=== PATIENT | male | born 1935 | race Caucasian/White ===

== ENCOUNTER 2025-10-05 09:36 | Emergency (ER) | payer MEDICARE, SELFPAY ==
--- OUTSIDE RECORDS SUMMARY | 2025-09-30 10:00 | XMS_ITS | Continuity of Care Document ---
Author Organization [facility] Address [address] [place] [address] Phone Care Team Providers Care Truckload Owner Operator Name Role Phone Sal Negro MD Primary Care Provider [phone] Gael Jackson MD Other Provider Randolph Mohamud MD Attending Provider Ankur Murillo DO Emergency Provider NON STAFF Primary Care Provider Parker Lopez MD Admit Provider Marcel Parker MD Other Provider Ilia Man MD Other Provider Indira Farris MD Attending Provider [phone] Indira Farris MD Other Provider Care Teams Patient Care Team Team Status: Active Member Role/Relationship Status Dates NON STAFF Primary Care Provider Active Visit Care Team Team Status: Active Member Role/Relationship Status Dates Sal Negro MD Primary Care Provider Active Start: August 25, 2025 Gael Jackson MDOther ProviderActiveStart: August 25, 2025 Randolph Mohamud MDAttmary ProviderActiveStart: August 25, 2025 Visit Care Team Team Status: Active Member Role/Relationship Status Dates Ankur Murillo DO Emergency Provider Active Start: September 19, 2025 NON STAFFPrimary Care ProviderActiveStart: September 19, 2025 Francisco Mayorga ProviderActiveStart: September 19, 2025 Rene Peacock ProviderActiveStart: September 19, 2025 Rene Avina ProviderActiveStart: September 19, 2025 Donna Fall ProviderActiveStart: September 19, 2025 Rene Fall ProviderActiveStart: September 19, 2025 Patient Care Team Team Status: Inactive Member Role/Relationship Status Dates NON STAFF Primary Care Provider Active Start: September 30, 2025 End: September 30, 2025Donna Fall ProviderActiveStart: September 30, 2025 End: September 30, 2025 Chief Complaint and Reason for Visit Chief Complaint Admit Date 3rd Degree AV Block August 25, 2025 1 :02pm Shortness of Breath September 19, 2025 9:55am hospital f/u September 30, 2025 2 :24pm Reason for Visit Admit Date (HFpEF) heart failure with preserved eje ction fraction September 19, 2025 9:55am Acute renal failure September 19, 2025 9:55am Acute urinary retention September 19, 9:55am CHAPINCITO (acute kidney injury) September 19, 2025 9:55am CHF (congestive heart failure) September 19, 2025 9:55am Hypertension September 19, 2025 9:55am Hypokalemia September 19, 2025 9:55am (HFpEF) heart failure with preserved eje ction fraction September 30, 2025 2:24pm Acute renal failure September 30, 2025 2 :24pm Acute urinary retention September 30 2:24pm Hypertension September 30, 2025 2 :24pm Proteinuria September 30, 2025 2 :24pm Reason for Referral Type Reason(s) Provider Provider Contact Information Rich harmon Address Start Date You have been scheduled for a follow up appointment for the following date and time, please call to reschedule if needed.[facility] Phone: [phone] [facility] [address]RyqcvcNikki Damon MD FACCEmail: [email or web address] Phone: [phone] [address] [facility] [address]Wdh office is currently closed. Please call the office for a follow-up appointment.Indira Farris MDEmail: [email or web address] Phone: [phone] [address] [facility] [address]Qfi have been scheduled for a follow up appointment for the following date and time, please call to reschedule if needed. You will be seeing Lulu Lozada NP on this date.Xenia Mckinney Phone: [phone] [address] [facility] [address] Allergies, Adverse Reactions, Alerts Allergen Type Severity Reaction Last Updated Verified Status No Known Allergies Allergy Unknown September 30, 2025 2:27pmYesActive Social History Smoking Status Status Start Date End Date Date of Observa tion Ex-smoker (finding) September 30, 2025 2:31pm Observation Status Observation Response Date of Response Legal Sex Male (finding) Sex Assigned At BirthMaleSept1934 Social History Assessments Assessment Value Date Recorded SDOH Follow up September 24, 2025 12:09pmQuestionAnswerDate RecordedHas the SDOH screening changed since admission?NNovember 2024 12:09pm Family History Relationship Condition Age at Onset Recorded Date/T marietta Not Specified No pertinent family history Unknown Problems Active Problems Problem Diagnosis/Recorded Date Onset Date Status C omments CHAPINCITO (acute kidney injury) September 19, 2025 9:44am Unkno wn Active (HFpEF) heart failure with preserved ejection fractionNov2024 3:28pm UnknownActiveAcute renal failureNov2024 2:42pmUnknownActiveCHF (congestive heart failure)September 19, 2025 9:44amUnknownActiveProteinuria September 30, 2025 2:37pmUnknownActiveAcute urinary retentionNov2024 4:23pmUnknownActiveHypertensionJune 2021 9:00amUnknownActiveProblem List clean-up per request of Phys. EHR [facility]2024 3:53pm UnknownActive Medications Medication Status Dose Units Route Directions Qty Days Refills S tart Date Stop Date End Date Reason(s) Instructions Adherence Amlodipine 10 mg Tablet Discontinued 10 MG PO Dori ly at bedtime April 10, 2022 11:00pmSeptember 19, 2025 8:25amhtnAtorvastatin 40 mg Tablet Xxfgfn16DIEQHufeq at bedtimeOur [facility]2021 11:00pmComplies with drug therapy Carvedilol 12.5 mg QkdkibOjhejt83.5MGPOTwice dailyJun2021 11:00pm Complies with drug therapyLisinopril-Hydrochlorothiazide 20-12.5 mg TabletActive 1TABPOEvery morningJun2021 11:00pmhtnOn Hold: Resume on 10/01/25.Unknown Lisinopril-Hydrochlorothiazide 10-12.5 mg OtjvstWwabsdjrqyhg0JXWSEMryoaBodg 14th, 2022 11:00pmJune 2021 10:92alsysRy-Yzf-Jcbfs-Z7-Ttjixhz-Zzgzxh (Centrum Silver Men) 300-600-300 mcg CaknqvSfyivm0ZQCNCIwtrcUhha 2021 11:00pmComplies with drug therapyAspirin 81 mg Tablet,CiihsfmlMqbhuzalgwps24KLHO DailyJun2021 11:00pm[facility] 8:24amClindamycin Hcl 300 mg aqlzlndKabymdgivpuq358XDKSXaqcz times iydts247Ohwv 29th, 2022 11:00pm[facility]20[facility] 8:24amVit C-Vit L-Kt-Ev-Lutein-Zeax 250 mg-200 unit -12.5 mg-1 mg jrskrcFahrlb9DIKFFRobzqZpvrraqd 23rd, 2025 12:00amComplies with drug therapy Cefdinir 300 mg tukftbhSfxgesdmurzw910CYIUEqexx yzsgt111Czrygufs2024 12:00amDecebanner [facility] 2024 2:29pmTamsulosin (Flomax) 0.4 mg capsuleActive0.4MGPO Ofjvf296PfzmxwgfSeptember 24, 2025 12:00amComplies with drug therapyDocusate Sodium (Colace) 100 mg fgnqmczFhoujnepagrh718OGTCUirvt as needed for gyhywbnanucz141 September 24, 2025 1:34pmDecemb2024 2:29pm Immunizations Immunization Event Date Not Given Reason Dose Number Clipper Counters Lot Number Reason(s) Given Vaccine Information Statement (VIS) Detail Administration Location COVID-19 mRNA-1273 (Moderna) November 14, 2020 COVID-19 mRNA-1273 (Moderna)December 15OVID-19 mRNA-1273 (Moderna) September 01, 2021 Medical Equipment Device Date Implanted Device Details Dual-chamber implantable pac emaker, rate-responsive April 26, 2022 DANIEL: [id number] Issuing Agency: [facility] Device Id: [id number] Serial Number: [id number] Vital Signs Vital Reading Result Reference Range Collection Date/Time Height 65 [in_i] September 20, 2025 2:99nrQmegrr63.00 kgSeptember 24, 2025 5:31amBody Xaxrrxjftwy76.8 [degF]97.6-99.0September 24, 2025 7:41pmHeart Rate80 /jjx10-390 September 24, 2025 7:41pmRespiratory rate18 /prr33-08SdiythboSeptember 24, 2025 7:41pm Oxygen saturation by Pulse kihqpskt58 %95-100September 24, 2025 7:41pmBP Piomhmfo061 mm[Hg]100-140September 24, 2025 7:41pmBP Awjikafya96 mm[Hg]60-100 September 24, 2025 7:03bbInspzk17 [in_i]September 30, 2025 2:39epHrzrex52.21 kg September 30, 2025 2:25pmHeart Rate77 /oub55-911Axkzfigf 4th, 2025 2:25pm Respiratory rate16 /vhg24-16Yvoypryi 4th, 2025 2:25pmOxygen saturation by Pulse hbibboii70 %95-100Decemb2024 2:25pmBP Mjrfcdqz402 mm[Hg]100-140Decemb2024 2:25pmBP Dgpjstoey16 mm[Hg]60-100Dece2024 2:25pmBMI (Body Mass Index)26.1 kg/o1StbbivusSeptember 30, 2025 2:25pm Advance Directives Advance Directive Response Recorded Date/ Time Advance Directives No August 06, 2017 3:39pm Insurance Providers Guarantor Brian Schaeffer [employer] Address [address] [address]Ysgltgs Info.Home Phone: Payer Group Member ID Coverage Type Subscriber Relationship to Subscriber Effective Date Expiration Date Medicare [id number] T [employer] Id: [id number] [address] [address] Home Phone: Email: decline [employer] Insurance [employer] [id number] T Ruffing Id: [id number] [address] [address] Home Phone: Email: decline [employer] Encounters Encounter Location(s) Arrival/Admit Date Discharge/Departure Date Discharge/Departure Disposition Provider(s) Non-patient / [facility]visit -[facility] July 292024 1:02pm Annabel MohamudNon-patient / [facility]fe[facility] September 19, 2025 9:55amELUL Kiddeparted Physician/Provider Office Visit-[facility]pmD[facility] 2:57pmDischarged to home care or self care (routine discharge)Indira Farris MD Recent Diagnosis Onset Date Admit Date (HFpEF) heart failure with p reserved ejection fraction Unknown September 19, 2025 9:55am Acute renal failure Unknown August 9:55am Acute urinary retention Unknown September 19, 2025 9:55am CHAPINCITO (acute kidney injury) Unknown Novemb er 2024 9:55am CHF (congestive heart failure) Unknown N ovember 2024 9:55am Hypertension Unknown September 19 025 9:55am Hypokalemia Unknown September 19 025 9:55am (HFpEF) heart failure with p reserved ejection fraction Unknown September 30, 2025 2:24pm Acute renal failure Unknown September 2:24pm Acute urinary retention Unknown September 30, 2025 2:24pm Hypertension Unknown September 30 2:24pm Proteinuria Unknown September 30 2:24pm Assessments Diagnosis Onset Date Resolution Status Admit Date (HFpEF) heart failure with preserved eje ction fraction acuteSeptember 19, 2025 9:55amAcute renal failureacuteSeptember 19, 2025 9:55amAcute urinary retentionacuteSeptember 19, 2025 9:55amAKI (acute kidney injury)acuteSeptember 19, 2025 9:55amCHF (congestive heart failure)acute September 19, 2025 9:55amHypertensionacuteSeptember 19, 2025 9:55amHypokalemia acuteSeptember 19, 2025 9:55am(HFpEF) heart failure with preserved ejection fractionacuteDecemb2024 2:24pmAcute renal failureacuteDece2024 2:24pmAcute urinary retentionacutece2024 2:24pmHypertensionacute September 30, 2025 2:24pmProteinuriaacuteDece2024 2:24pm Plan of Treatment Future Tests Future scheduled test information is unavailable Pending Tests Test Name Ordered Date Scheduled Date Renal Function Panel September 30, 2025 2:50pm 2 Weeks Future Visits Future appointment information is unavailable Future Procedures Procedure Name Ordered Date Scheduled Date Basic Metabolic Panel September 24, 2025 1:33pm 1 Weeks Admit Status Order September 19, 2025 9:55am No vember 2024 9:55am Discharge Order September 24, 2025 12:24pm Albert guido 2024 12:24pm Consult to Nephrology September 22, 2025 9:44am September 22, 2025 9:44am Consult to Urology September 21, 2025 8:03pm No vember 2024 8:03pm Hemogram CBC Without Diff September 30, 2025 2:5 0pm 2 Weeks Phosphorus September 30, 2025 2:50pm 2 Week s Parathyroid Hormone Intact September 30, 2025 2: 50pm 2 Weeks Creatinine, Urine (Random) September 30, 2025 2: 50pm 2 Weeks Total Protein, Urine September 30, 2025 2:53pm 2 Weeks Future Medications Future medication information is unavailable Patient Instructions Instruction Admit Date Cefdinir Tamsulosin Know your MedsNovember 2024 9:55am Goals Acute Goals Author Authored Date need f/u with Urology and nephrology in 1-2 weeks [facility]ir [facility] 12[facility]27[facility]
[2025-10-05 09:49] VITALS: BP 118/63; PULSE 92; TEMP 36.6; O2SAT 100; BMI 27.0
--- NOTE | 2025-10-05 11:13 | ED_ITS ---
HPI - Male Genitourinary General Chief complaint: Urogenital-Male Stated complaint: CATHETER ISSUE Time Seen by Provider: 10/05/25 10:38 Source: patient Mode of arrival: walk-in Limitations: no limitations History of Present Illness HPI Narrative: The patient presented to us with urine retention he was found to have more than 1000 cc of urine in his bladder upon arrival, Ruggiero catheter was removed yesterday at the attempt to see if the patient can urinate with no difficulty but the patient did not urinate since yesterday No fever no chills no other concerns Related Data Allergies Allergy/AdvReac Type Severity Reaction Status Date / Time No Known Drug Allergies Allergy Verified 10/05/25 09:49 Review of Systems ROS Status of ROS 10 or more systems reviewed and unremark able except as noted in history and below PFSH PFSH Social History Little interest or pleasure in doing things: not at all Feeling down, depressed, or hopeless: not at all Exam Narrative Exam Narrative: Nurses notes and vital signs reviewed and patient is not hypoxic. General: Well-appearing and in no apparent distress. Skin: Warm, dry, no pallor noted. No rash. Head: Normocephalic, atraumatic. Neck: Supple, non-tender. Cardiovascular: Regular Rate and Rhythm without murmur, gallop or rub. Respiratory: No accessory muscle use or respiratory distress. Lungs are clear to auscultation, no wheezing, rales or rhonchi Chest Wall: no tenderness GI: Abdomen is soft, non-distended. Normal bowel sounds. No masses appreciated. Discomfort in the suprapubic area initially but after the patient had a catheter placed there was no further discomfort Neurological: A&O x4. No cranial nerve dysfunction observed. No truncal ataxia. Moves all extremities. Sensation intact. Psychiatric: Cooperative and interactive. Normal mood and affect. Constitutional Vital Signs, click to edit/add: Last Vital Signs Temp 97.9 F 10/05/25 09:49 Pulse 92 H 10/05/25 09:49 Resp 15 10/05/25 09:49 BP 118/63 10/05/25 09:49 Pulse Ox 100 10/05/25 09:49 O2 Del Method Room Air 10/05/25 09:49 Course Vital Signs Vital signs: Vital Signs Temperature 97.9 F 10/05/25 09:49 Pulse Rate 92 H 10/05/25 09:49 Respiratory Rate 15 10/05/25 09:49 Blood Pressure 118/63 10/05/25 09:49 Pulse Oximetry 100 10/05/25 09:49 Oxygen Delivery Method Room Air 10/05/25 09:49 Temperature 97.9 F 10/05/25 09:49 Pulse Rate 92 H 10/05/25 09:49 Respiratory Rate 15 10/05/25 09:49 Blood Pressure 118/63 10/05/25 09:49 Pulse Oximetry 100 10/05/25 09:49 Oxygen Delivery Method Room Air 10/05/25 09:49 MDM - Male Genitourinary MDM Narrative Medical decision making narrative: Catheter was placed after the patient was retaining more than 1000 cc after which she was feeling much better He already was started on Flomax after he was found to be in urine retention at the end of August when he was admitted to another facility for CHF exacerbation The patient right now have no concern no fever and right now he just need to monitor his symptoms. Any fever or any other concern he is to be brought back to the ER Otherwise need to continue the Flomax and follow-up with urology The patient to follow-up with the primary care within 2 to 3 days and to come back to the ER in case of any worsening of the current symptoms or any new symptoms or concerns Discharge Plan Discharge Chief Complaint: Urogenital-Male Clinical Impression: Acute retention of urine Patient Disposition: Home, Self-Care Time of Disposition Decision: 11:18 Condition: Good Print Language: Irish Instructions: Ruggiero Catheter Placement and Care (ED) Referrals: CARLIE DIAZ [Primary Care Provider, SYSTEMS SOFTWARE DEVELOPER] - 1 week Discharge Date/Time: 10/05/25 11:28
== END 2025-10-05 11:28 | disposition home or self-care (01) ==
PROVIDERS: Emergency Provider Emergency Medicine; PCP Nurse Practitioner
DX: R33.8 Other retention of urine (principal)
CPT/HCPCS: 99283; 99284

== ENCOUNTER 2025-10-15 10:39 | Outpatient (OUT) | payer MEDICARE, SELFPAY ==
--- OUTSIDE RECORDS SUMMARY | 2025-10-15 10:45 | XMS_ITS | Encounter Summary ---
Author Organization [facility] Address [address] [place] [address] Phone Care Team Providers Care Supervisor Newspaper Deliveries Name Role Phone Gael Jackson MD Unavailable [phone] Gustavo Macias DO Primary Care Provider [phone] Luanne Leach RN Unavailable Unavailable Encounter Details DateTypeDepartmentCare Team (Latest Contact Info)Sgmwntotxze15/16/2025Patient Outreach at [facility] [address] [place] [phone] Luanne Leach, DONYA Social History Tobacco UseTypesPacks/DayYears UsedDateSmoking Tobacco: FormerCigarettesAlcohol UseStandard Drinks/WeekCommentsYes0 (1 standard drink = 0.6 oz pure alcohol)Sex and Gender InformationValueDate RecordedSex Assigned at BirthNot on fileLegal RseZueg96/26/2022 5:16 PM ESTGender IdentityNot on fileSexual OrientationNot on filedocumented as of this encounter Progress Notes * Luanne Leach RN - 10/12/2025 2:20 PM EST Unable to reach patient for follow up call after recent hospitalization. Left voicemail with call back number, for patient to call as needed. If no voicemail available call attempts x 2 were made to contact the patient to assist with any questions or concerns patient may have. documented in this encounter Plan of Treatment DateTypeDepartmentCare Team (Latest Contact Info)Abmvwomzons00/05/2026 1:40 PM ESTOffice Visit at [facility] [address] [facility] [address] [place] [phone] Gael Jackson MD [address] [facility], [facility] [address] [place] [address] 02/16/2026 9:20 AM EDTOffice Visit at [facility] [address] [facility] [address] [place] [phone] Gael Jackson MD [address] [facility] [address], [address] [address] documented as of this encounter Visit Diagnoses Not on filedocumented in this encounter Additional Health Concerns AssessmentNoted TimeA fall risk assessment has been completed for the patient 07/07/2025 9:17 AM EDTdocumented as of this encounter Care Teams Team MemberRelationshipSpecialtyStart DateEnd Date Gael Jackson MD [address] [facility] [address], [address] [address] PCP - MSSP ACO Attributed Mirlbkih72/1/23 Gustavo Macias DO [address] [facility] [place] [address] PCP - General02/04/24 Luanne Leach, DONYA Care ManagerCase Yvkfmctcjn00/1/25documented as of this encounter
--- OUTSIDE RECORDS SUMMARY | 2025-10-15 10:45 | XMS_ITS | Clinical Summary ---
Author Organization [facility] Address [address] [place] [address] Phone Care Team Providers Care Drying Supervisor Name Role Phone Gael Jackson MD Unavailable [phone] Gustavo Macias DO Primary Care Provider [phone] Luanne Leach RN Unavailable Unavailable Allergies No known active allergies Medications MedicationSigDispense QuantityRefillsLast FilledStart DateEnd DateStatus aspirin 81 mg EC tablet Take 1 tablet (81 mg) by mouth 2 times a week.Active cholecalciferol (Vitamin D-3) 25 MCG (1000 UT) capsule Take 1 capsule (25 mcg) by mouth once daily.Active atorvastatin (Lipitor) 20 mg tablet Indications:Hyperlipidemia, unspecified hyperlipidemia typeTake 0.5 tablets (10 mg) by mouth once daily. 45 tablet 501/6Active lisinopriL-hydrochlorothiazide 20-12.5 mg tablet Indications:Essential hypertensionTake 1 tablet by mouth once daily. 90 tablet 5Active carvedilol (Coreg) 12.5 mg tablet Indications:Essential hypertensionTake 1 tablet (12.5 mg) by mouth 2 times a day. 180 tablet 508/6Active multivitamin with minerals iron-free (Centrum Silver) Take 1 tablet by mouth once daily.Active naproxen (EC Naprosyn) 500 mg EC tablet Take 1 tablet (500 mg) by mouth 2 times daily (morning and late afternoon). Do not crush, chew, or split.Active vit A/vit C/vit E/zinc/copper (PRESERVISION AREDS ORAL) Take by mouth.Active hydrALAZINE (Apresoline) 25 mg tablet Indications:Essential hypertensionTake 1 tablet (25 mg) by mouth 2 times a day. 180 tablet ctive Active Problems ProblemNoted DateDiagnosed DateEdema, mgrbajsmzxl11MI 31.0-31.9,adult 12/01/2024MI 29.0-29.9,adult/06/2024Former ioackl3402/04/2024Essential yrwmxaxmbugr91/18/0813Blejywzdwxovmo48/18/5784Bkkfzrtxu27/18/2024Third degree AV block11/14/2023 Encounters DateTypeDepartmentCare QnozMweeeqvxmxg60/16/2025Patient Outreach at [facility] [address] [place] [phone] Luanne Leach, DONYA 09/30/2025Patient Risk Score [facility]CO Care Management [address] [place] [phone] 09/27/2025Patient Outreach at [facility] [address] [place] [phone] Luanne Leach, DONYA 09/24/2025Scanned Document [facility] [address] [place] [address] Scanning, Generic Provider 09/20/2025Scanned [facility] [address] [place] [address] Scanning, Generic Provider 09/19/2025Scanned Document [facility] [address] [place] [address] Scanning, Generic Provider 08/31/2025Patient Risk Score ACO Care Management [address] [place] [phone] 08/09/2025Telephone at [facility] [address] [phone] Evelyn Mcnally RN 07/31/2025Patient Risk Score ACO Care Management [address] [place] [address] from Last 3 Months Immunizations ImmunizationAdministration DatesNext DueCOVID-19, subunit, rS-nanoparticle, adjuvanted, PF, 5 mcg/0.5 mL08/05/2024Flu vaccine, trivalent, preservative free, HIGH-DOSE, age 65y+ (Fluzone)08/28/2017Influenza, Seasonal, Quadrivalent, Ihshhstzrc55/19/2022,08/16/2021Influenza, Tctovumnwpc62/01/2023,07/31/2022, 08/28/2021,08/28/2020,07/28/2019,08/28/2018,07/28/2016,08/28/2015,07/28/2014, 06/28/2014,08/06/2013,08/03/2011,08/17/2009,08/25/2008Influenza, seasonal, nduaxgazan03/24/2024,07/31/2022,08/28/2020,07/28/2019Influenza, trivalent, xhzpeoiabx99/09/2024Moderna SARS-CoV-2 Hxgrdlkaugy43/23/2024,09/01/2021, 12/15/2020,1Pneumococcal conjugate vaccine, 13-valent (PREVNAR 13) 08/28/2017,06/06/2016Pneumococcal polysaccharide vaccine, 23-valent, age 2 years and older (PNEUMOVAX 23)10/28/2009Pneumococcal, Kokcrubtmlz38/19/2006Tdap vaccine, age 7 year and older (BOOSTRIX, ADACEL)03/19/2023Zoster vaccine, recombinant, adult (SHINGRIX)06/10/2019,03/05/2019 Family History Medical HistoryRelationNameCommentsstroke syndromeFatherstorke syndromeMother RelationNameStatusCommentsFatherMother Social History Tobacco UseTypesPacks/DayYears UsedDateSmoking Tobacco: FormerCigarettes Tobacco Cessation:Counseling Given: Not Answered Alcohol UseStandard Drinks/WeekCommentsYes0 (1 standard drink = 0.6 oz pure alcohol)Sex and Gender InformationValueDate RecordedSex Assigned at BirthNot on fileLegal JmrEeds42/26/2022 5:16 PM ESTGender IdentityNot on fileSexual OrientationNot on file Last Filed Vital Signs Vital SignReadingTime TakenCommentsBlood Rioziqcx640/7209 9:16 AM EDT Nnovo723407/07/2025 9:16 AM XGBDptqznemqur61.4 ??C (95.8 ??F)05/03/2022 11:55 AM EDTRespiratory Rate--Oxygen Saturation--Inhaled Oxygen Concentration--Doikbo64.2 kg (190 lb)07/07/2025 9:16 AM HLGIihiaj085.1 cm (5' 5 )07/07/2025 9:16 AM EDT Body Mass Index31.62007/07/2025 9:16 AM EDT Plan of Treatment DateTypeDepartmentCare Team (Latest Contact Info)Qbrqiomtmgb21/05/2026 1:[address] [facility] [address] [place] [phone] Gael Jackson MD [address] [place] [phone] 02/16/2026 9:20 AM EDTOffice Visit [facility] [address] [place] [phone] Gael Jackson MD [address] [place] [phone] Health MaintenanceDue DateLast DoneCommentsCreatinine Level1937 Uqnpmocbiopebd1937Lipid Panel1937Potassium Level1937Diabetes Qasupsfay11/04/1955Medicare Annual Wellness Visit (AWV) COVID-19 Vaccine ( season), 08/15/2022, 09/01/2021, Additional history existsInfluenza Vaccine (#1), 08/05/2024, 06/28/2023, Additional history existsDTaP/Tdap/Td Vaccines (2 - Td or Tdap)3Pneumococcal EcrdwpcYlllwzwtr41/01/2017, 06/06/2016, 10/28/2009, Additional history existsZoster YaaynxcmOidsxtoua51/14/2019, 03/05/2019RSV High Risk: (Elderly (60+) or Population)Completed 03/17/2025HIB VaccinesAged OutNo longer eligible based on patient's age to complete this topicHPV VaccinesAged OutNo longer eligible based on patient's age to complete this topicHepatitis A VaccinesAged OutNo longer eligible based on patient's age to complete this topicHepatitis B VaccinesAged OutNo longer eligible based on patient's age to complete this topicIPV VaccinesAged OutNo longer eligible based on patient's age to complete this topicMeningococcal VaccineAged OutNo longer eligible based on patient's age to complete this topic Rotavirus VaccinesAged OutNo longer eligible based on patient's age to complete this topic Insurance Care Teams Team MemberRelationshipSpecialtyStart DateEnd Date Gael Jackson MD [address] [facility], [facility] [address] [place] [address] PCP - MSSP ACO Attributed Qrgddgoj90/1/23 Gustavo Macias DO [address] [place] [address] PCP - General02/04/24 Luanne Leach, DONYA Care ManagerCase Qksiaydepo77/1/25
[2025-10-15 11:10] LABS: Hematocrit 28.9 % (42.0-54.0); Hemoglobin 9.3 g/dL (14.0-18.0); Mean Corpuscular HGB Conc 32.2 g/dL (29.9-35.2); Mean Corpuscular Hemoglobin 30.6 pg (25.9-34.0); Mean Corpuscular Volume 95.1 fL (80.0-94.0); Platelet Count 168 10^3/uL (150-450); Red Blood Count 3.04 10^6/uL (4.70-6.10); White Blood Count 5.4 10^3/uL (4.0-11.0)
[2025-10-15 11:29] LABS: Total Protein Urine Random 252.7 mg/dL (<=11.9)
[2025-10-15 11:46] LABS: Albumin Level 3.4 g/dL (3.4-5.0); Anion Gap 11.2; Blood Urea Nitrogen 62.0 mg/dL (7.0-18.0); Calcium 9.2 mg/dL (8.5-10.1); Carbon Dioxide 23.4 mmol/L (21.0-32.0); Chloride 107 mmol/L (98-107); Estimated GFR (African America 30 (>=60 mL/min/1.73m^2); Estimated GFR (Non-African Ame 25 (>=60 mL/min/1.73m^2); Glucose 101 mg/dL (74-106); Potassium 4.6 mmol/L (3.5-5.1); Sodium 137 mmol/L (136-145)
== END 2025-10-15 10:40 | disposition home or self-care (01) ==
LOC: LAB 10:41
PROVIDERS: PCP Nurse Practitioner; Visit Provider Internal Medicine Nephrology
DX: N18.9 Chronic kidney disease, unspecified (principal); D63.1 Anemia in chronic kidney disease; R80.1 Persistent proteinuria, unspecified; N17.9 Acute kidney failure, unspecified; I50.30 Unspecified diastolic (congestive) heart failure; N25.81 Secondary hyperparathyroidism of renal origin; I11.0 Hypertensive heart disease with heart failure
CPT/HCPCS: 36415; 80069; 82570; 83970; 84100; 84156; 85027